=== PATIENT | female | born 1945 | race Caucasian/White ===

== ENCOUNTER 2019-12-22 05:06 | Emergency (ER) | payer MEDICARE, OTHER ==
[~2019-12-22] VITALS: Ht 154.9 cm; Wt 64.0 kg
[~2019-12-22 05:06] MED LIST: ASPI-1079 PO; BENA20TA10 PO; METFORMIN PO; OMEP40CA12 PO; SIMV-46 PO; [UNRECOGNIZED DRUG - OTHER]; [UNRECOGNIZED DRUG - OTHER]
[2019-12-22] MEDS ORDERED: SODIUM CHLORIDE 0.9% 1,000 ML IV ONE (06:25)
[2019-12-22] MEDS ORDERED: ACETAMINOPHEN 325MG TABLET PO STA (06:25)
[2019-12-22] MEDS ORDERED: MECLIZINE 25MG TABLET PO ONE (06:30)
[2019-12-22 06:43] LABS: BASOPHILS % 1.1 % (0.0-2.0); CHLORIDE 102 mEq/L (98-107); EOSINOPHILS % 2.6 % (0.0-5.0); HEMATOCRIT. 37.3 % (36.0-48.0); HEMOGLOBIN. 12.6 g/dL (12.0-16.0); LYMPHOCYTES % 20.3 % (20.0-50.0); MEAN CORPUSCULAR VOLUME 94.9 fL (81.0-99.0); MEAN PLATELET VOLUME 8.4 fl (7.4-10.4); MONOCYTES % 8.7 % (2.0-8.0); NEUTROPHILS % 67.3 % (40.0-76.0); PLATELET 277 x1000/uL (130-400); RED BLOOD CELL COUNT 3.93 mill/uL (4.2-5.4); RED CELL DISTRIBUTION WIDTH 13.2 % (11.6-14.6)
[2019-12-22 06:48] LABS: ETHANOL BLOOD < 10 mg/dL
[2019-12-22 07:07] LABS: *AMPHETAMINES SCREEN URINE NEGATIVE (NEGATIVE); *BARBITURATES SCREEN URINE NEGATIVE (NEGATIVE); *BENZODIAZEPINES SCREEN URINE NEGATIVE (NEGATIVE); *COCAINE SCREEN URINE NEGATIVE (NEGATIVE); METHADONE URINE SCREEN NEGATIVE (NEGATIVE)
[2019-12-22 07:08] LABS: CANNABINOID URINE SCREEN NEGATIVE (NEGATIVE); OPIATES URINE SCREEN NEGATIVE (NEGATIVE); PHENCYCLIDINE URINE SCREEN NEGATIVE (NEGATIVE)
[2019-12-22] MEDS ORDERED: KETOROLAC 30MG/ML VIAL IV ONE (07:15)
[2019-12-22 10:10] VITALS: BP 157/88
== END 2019-12-22 10:12 | disposition home or self-care (01) ==
LOC: ER 05:06
DX: R42 Dizziness and giddiness (principal)
CPT/HCPCS: 36415; 70450; 71045; 80053; 80305; 80320; 85025; 93005; 96361; 96374; 99285; J1885; J7030; J8597; G0480